=== PATIENT | male | born 1940 ===

== ENCOUNTER → 2017-11-13 | Outpatient (CLI) | payer OTHER | END | disposition home or self-care (01) | LOC: NUCLEAR 08:48 | DX: M81.0 Age-related osteoporosis without current pathological fracture (principal); I87.2 Venous insufficiency (chronic) (peripheral) ==

== ENCOUNTER 2018-06-05 12:53 | Outpatient (CLI) | payer OTHER | END 2018-06-05 12:58 | disposition home or self-care (01) | LOC: RAD 12:53 | DX: M25.561 Pain in right knee (principal) ==

== ENCOUNTER 2018-06-11 12:04 | Outpatient (CLI) | payer OTHER | END 2018-06-11 12:26 | disposition home or self-care (01) | LOC: LAB 12:04 | DX: G30.1 Alzheimer's disease with late onset (principal); Z51.81 Encounter for therapeutic drug level monitoring ==

== ENCOUNTER 2018-06-11 13:30 | Outpatient (CLI) | payer OTHER | END 2018-06-11 14:12 | disposition home or self-care (01) | LOC: MRI 13:30 | DX: G30.1 Alzheimer's disease with late onset (principal); G30.8 Other Alzheimer's disease; G31.9 Degenerative disease of nervous system, unspecified; I67.82 Cerebral ischemia | CPT/HCPCS: 70553; A9575 ==